=== PATIENT | female | born 1980 | race Hispanic/Latino ===

== ENCOUNTER 2017-10-08 10:13 | Emergency (ER) | payer OTHER ==
[~2017-10-08] VITALS: Ht 152.4 cm; Wt 79.4 kg
--- NOTE | 2017-10-08 11:07 | ED GI/GU/ABDOMINAL COMPLAINT ---
History of Present Illness General Chief Complaint: Female Urogenital Problems Stated Complaint: VAGINAL FORIEGN BODY (TAMPON) Source: patient Exam Limitations: no limitations Vital Signs & Intake/Output Vital Signs & Intake/Output Vital Signs Date Time Temp Pulse Resp B/P B/P Pulse O2 O2 Flow FiO2 Mean Ox Delivery Rate 10/08 1301 67 16 114/76 97 Room Air 10/08 1021 98.8 63 15 112/74 99 Room Air Room Air Allergies Coded Allergies: No Known Allergies (10/08/17) Reconcile Medications Metronidazole (Flagyl) 500 MG TABLET 1 TAB PO BID vag fb Triage Note: PT TO ED FOR C/C OF PIECE OF PLASTIC FROM TAMPON APPLICATOR STUCK IN VAGINA. PT REPORTS SOME DISCOMFORT BUT NO PAIN. Triage Nurses Notes Reviewed? yes ? n Is pt currently ? No Onset: Abrupt Duration: minute(s):, constant Timing: recent history No Modifying Factors: none HPI: 37-year-old female comes into the emergency room for further evaluation of vaginal foreign body. Patient reports that she was placing a tampon because she is currently on her period. She reports that a piece of the plastic broke off and is still inside. She comes in for further evaluation. She denies any pain. Denies any fever or vomiting. (Michel Quesada) Past History Travel History Traveled to [place] past 21 day No Medical History Any Pertinent Medical History? none Neurological: NONE EENT: NONE Cardiovascular: NONE Respiratory: NONE Gastrointestinal: NONE Hepatic: NONE Renal: NONE Musculoskeletal: NONE Psychiatric: NONE Endocrine: NONE Blood Disorders: NONE Cancer(s): NONE THEATRICAL RIGGER/Reproductive: NONE Tetanus Vaccine: 05/15/13 Surgical History Surgical History: non-contributory Psychosocial History What is your primary language Swedish Tobacco Use: Never used ETOH Use: denies use Illicit Drug Use: denies illicit drug use Family History Hx Contributory? No (Michel Quesada) Review of Systems Review of Systems Constitutional: Reports: no symptoms. EENTM: Reports: no symptoms. Respiratory: Reports: no symptoms. Cardiovascular: Reports: no symptoms. GI: Reports: no symptoms. Genitourinary: Reports: see HPI. Musculoskeletal: Reports: no symptoms. Skin: Reports: no symptoms. Neurological/Psychological: Reports: no symptoms. Hematologic/Endocrine: Reports: no symptoms. Immunologic/Allergic: Reports: no symptoms. All Other Systems: Reviewed and Negative (Michel Quesada) Physical Exam Physical Exam General Appearance: well developed/nourished, alert, awake Head: atraumatic Eyes: Bilateral: normal appearance. Ears, Nose, Throat, Mouth: hearing grossly normal, moist mucous membrane Neck: normal inspection Respiratory: no respiratory distress Gastrointestinal: soft, non-tender Pelvic: no cerv. motion tender, no masses, No foreign body appreciated, no discharge Back: normal inspection Extremities: normal range of motion Neurologic/Psych: awake, alert, oriented x 3 Skin: intact Core Measures ACS in differential dx? No Sepsis Present: No Sepsis Focused Exam Completed? No (Michel Quesada) Progress Differential Diagnosis: Vaginal foreign body, toxic shock syndrome , sepsis, Plan of Care: Orders Procedure Date/time Status URINE 10/08 1103 Complete Laboratory Tests 10/08/17 1122: Urine Test NEGATIVE Initial ED EKG: none (Michel Quesada) Departure Departure Disposition: HOME OR SELF CARE Condition: Stable Clinical Impression Primary Impression: Vaginal foreign body Referrals: Ang Fry MD (PCP/Family) Additional Instructions: Take Flagyl as prescribed. Follow-up with [facility] doctor on Wednesday for repeat pelvic exam. Return if any other concerns worsening symptoms. Please go over all results of today's visit with your primary care doctor. Contact your primary care doctor to let them know you were here in the emergency room. There may be nonspecific findings which may not be related to your visit today here in the emergency room but may require further evaluation and chronic monitoring by your primary care doctor. If you had a laceration today the chance of foreign body always remains. You should follow-up with your primary care doctor for recheck in 3-5 days for a wound check. If you had an x-ray done there is a chance that a fracture could have been missed on initial read and you should follow-up with your primary care doctor for repeat x-rays if symptoms persist. If your blood pressure was elevated here in the emergency room please have rechecked by [facility] primary care doctor within the next 48. If you were prescribed a narcotic here in the emergency room or any type of controlled substances you're not allowed to drive while taking this medication or operate any type of heavy machinery. Narcotics can make you feel lightheaded dizziness nausea and can cause constipation. You may need to grain picker a stool softener. Thank you for choosing [facility] emergency room. Please return to the emergency room immediately if you have any other concerns worsening of symptoms. Departure Forms: Customer Survey General Discharge Information Prescriptions: Current Visit Scripts Metronidazole (Flagyl) 1 TAB PO BID #14 TAB Comments 10/08/2017 1:46:[address] Silva from [facility] over in [place]. They will follow up with the patient on Wednesday for repeat pelvic exam. Patient started on oral antibiotics. No signs of foreign body on CT scan. No appreciable foreign bodies on speculum exam. There were no extra-large speculums so the entire vaginal vault cannot be visualized on exam. There were none at the childbirth center or in distribution as well. (Michel Quesada) PA/[facility]CHER Co-Sign Statement Statement: ED Attending supervision documentation- I saw and evaluated the patient. I have also reviewed all the pertinent lab results and diagnostic results. I agree with the findings and the plan of care as documented in the PA's/DOUGH PUNCHER's documentation. x I have reviewed the ED Record and agree with the PA's/DOUGH PUNCHER's documentation. [] Additions or exceptions (if any) to the PAs/DOUGH PUNCHER's note and plan are summarized below: [] (Mannie ALVARADO,Khurram) ED Attending Observation Initial Observation Note: I have seen and personally examined DULCE MARIA MERCER on 10/08/17 at 1346. I agree with the current emergency department documentation. The disposition (admission or discharge) is uncertain at this time, she needs a period of observation for the following reason(s): The ED Nurse caring for this patient has been personally informed as to what the patient is being observed for. (Michel Quesada)
--- NOTE | 2017-10-08 12:00 | CT SCAN REPORT ---
EXAMINATION: CT PELVIS WITHOUT CONTRAST CLINICAL INFORMATION: Rule out vaginal foreign body. Piece of plastic ripped off tampon. This is not found on physical exam. COMPARISON: None TECHNIQUE: Helical scanning was performed with submillimeter collimation through the pelvis. Sagittal and coronal multiplanar 2-D reconstructions were obtained. DLP: 315 mGy-cm FINDINGS: PELVIS: There is no vaginal or uterine radiopaque foreign body. There is a small focus of gas seen within the vagina adjacent to the cervix. No additional gross filling defects seen in the vaginal canal. The uterus appears unremarkable. No adnexal mass. The visualized bowel is unremarkable. No obstruction. No lymphadenopathy. The bladder is partially distended without wall thickening. OSSEOUS STRUCTURES: No acute or suspicious osseous abnormality. Transitional anatomy of the lumbosacral junction. IMPRESSION: There is no radiopaque foreign body identified in the vagina or uterus. Small focus of gas seen in the vagina adjacent to the cervix. Otherwise no filling defect identified.
[2017-10-08] MEDS ORDERED: FLAGYL500 MG PO (12:50)
[2017-10-08 13:01] VITALS: BP 114/76
== END 2017-10-08 13:16 ==
LOC: ERH 10:13
DX: T19.2XXA Foreign body in vulva and vagina, initial encounter (principal)
CPT/HCPCS: 81025